=== PATIENT | male | born 1980 | race African-American/Black ===

== ENCOUNTER 2022-11-24 09:26 | Inpatient (IN) | payer OTHER ==
[2022-11-24 10:10] VITALS: BMI 25.3
[2022-11-24] MEDS ORDERED: IBUPROFEN 400 MG TABLET (FP) PO PRN (11:38)
[2022-11-24] MEDS ORDERED: chlordiazePOXIDE HCL 25 MG CAPSULE PO PRN (11:38)
[2022-11-24] MEDS ORDERED: LOPERAMIDE HCL 2 MG CAPSULE PO PRN (11:38)
[2022-11-24] MEDS ORDERED: BENZONATATE 200 MG CAPSULE PO PRN (11:38)
[2022-11-24] MEDS ORDERED: MAG HYDROX/AL HYDROX/SIMETH 30 ML UNIT-DOSE CUP PO PRN (11:38)
[2022-11-24] MEDS ORDERED: DICYCLOMINE HCL 10 MG CAPSULE PO PRN (11:38)
[2022-11-24] MEDS ORDERED: ACETAMINOPHEN 325 MG TABLET (FP) PO PRN (11:38)
[2022-11-24] MEDS ORDERED: ONDANSETRON *ODT* 4 MG TABLET SL PRN (11:38)
[2022-11-24] MEDS ORDERED: NALOXONE HCL 0.4 MG/ML VIAL IM PRN (11:38)
[2022-11-24] MEDS ORDERED: MAGNESIUM HYDROX 2400MG/30ML ORAL SUSPENSION 30 ML CUP PO PRN (11:38)
[2022-11-24] MEDS ORDERED: guaiFENesin 600 MG TABLET.ER (FP) PO PRN (11:38)
[2022-11-24] MEDS ORDERED: hydrOXYzine PAMOATE 25 MG CAPSULE (FP) PO PRN (11:38)
[2022-11-24] MEDS ORDERED: BISMUTH SUBSALICYLATE 524 MG/30 ML PO PRN (11:38)
[2022-11-24] MEDS ORDERED: POLYETHYLENE GLYCOL (HEALTHYLAX) 3350 17 GM PACKET PO PRN (11:38)
[2022-11-24] MEDS ORDERED: NALOXONE HCL (KLOXXADO) 8 MG SPRAY NS PRN (11:38)
[2022-11-24] MEDS ORDERED: BENZOCAINE/MENTHOL (CHLORASEPTIC ) LOZENGE MM PRN (11:38)
[2022-11-24] MEDS ORDERED: ALBUTEROL SO4 HFA INHALER IH PRN (14:50)
[2022-11-24] MEDS: chlordiazePOXIDE HCL 25 MG CAPSULE PO SCH ×2 (17:19→22:22)
[2022-11-24] MEDS ORDERED: MELATONIN 5 MG TABLETS PO SCH (22:00)
[2022-11-24] MEDS: traZODone HCL 50 MG TABLET (FP) PO SCH (22:22)
[2022-11-24] MEDS: THIAMINE HCL 100 MG TABLET (FP) PO SCH (22:22)
[2022-11-25] MEDS: chlordiazePOXIDE HCL 25 MG CAPSULE PO SCH ×4 (06:00→22:12)
[2022-11-25] MEDS: PRENATAL VITAMINS W/ FOLIC ACID TABLET (FP) PO SCH (10:20)
[2022-11-25] MEDS: amLODIPine BESYLATE 5 MG TABLET (FP) PO SCH (10:20)
[2022-11-25] MEDS: HYDROCHLOROTHIAZIDE 12.5 MG CAPSULE (FP) PO SCH (10:20)
[2022-11-25 11:41] LABS: CHLORIDE 111 mmol/L (98-107); POTASSIUM 3.6 mmol/L (3.5-5.1); SODIUM 145 mmol/L (136-145)
[2022-11-25 11:43] LABS: ANION GAP 4 MMOL/L (8-16); BLOOD UREA NITROGEN 18.2 mg/dL (7-18); CALCIUM 8.2 mg/dL (8.5-10.1); CO2 29 mmol/L (21-32); GLUCOSE,RANDOM 86 mg/dL (74-106); HEMATOCRIT 40.2 % (35.4-49); HEMOGLOBIN 13.2 GM/dL (11.7-16.9); MCH 31.2 pg (25.7-33.7); MCHC 32.8 g/dl (32.0-35.9); MEAN CELL VOLUME 95.3 fl (80-96); PLATELET COUNT 246 10^3/uL (134-434); RBC 4.22 M/mm3 (4.00-5.60); RDW 14.2 % (11.9-15.9); WHITE BLOOD COUNT 7.1 K/mm3 (4.0-10.0)
[2022-11-25 11:44] LABS: ALBUMIN 2.8 g/dl (3.4-5.0)
[2022-11-25 11:46] LABS: SGPT/ALT 35 U/L (13-61)
[2022-11-25 11:47] LABS: CREATININE 0.9 mg/dL (0.55-1.3); SGOT/AST 29 U/L (15-37)
[2022-11-25 11:48] LABS: BILIRUBIN,TOTAL 0.5 mg/dL (0.2-1); TOT PROT 5.8 g/dl (6.4-8.2)
[2022-11-25 11:49] LABS: ALK PHOS 44 U/L (45-117)
[2022-11-25] MEDS: FLUoxetine HCL 10 MG CAPSULE PO SCH (12:21)
[2022-11-25] MEDS ORDERED: ALBUTEROL SO4 2.5/IPRATROPIUM 0.5 INH SOL 3 ML VIAL.NEB. NEB ONE (18:53)
[2022-11-25] MEDS ORDERED: predniSONE 20 MG TABLET (UD) PO ONE (19:00)
[2022-11-25] MEDS: THIAMINE HCL 100 MG TABLET (FP) PO SCH (22:11)
[2022-11-25] MEDS: traZODone HCL 50 MG TABLET (FP) PO SCH (22:11)
[2022-11-26] MEDS: chlordiazePOXIDE HCL 25 MG CAPSULE PO SCH ×4 (05:44→22:21)
[2022-11-26] MEDS ORDERED: ALBUTEROL SO4 2.5/IPRATROPIUM 0.5 INH SOL 3 ML VIAL.NEB. NEB SCH (08:00)
[2022-11-26] MEDS: amLODIPine BESYLATE 5 MG TABLET (FP) PO SCH (10:16)
[2022-11-26] MEDS: HYDROCHLOROTHIAZIDE 12.5 MG CAPSULE (FP) PO SCH (10:16)
[2022-11-26] MEDS: PRENATAL VITAMINS W/ FOLIC ACID TABLET (FP) PO SCH (10:17)
[2022-11-26] MEDS: FLUoxetine HCL 10 MG CAPSULE PO SCH (10:20)
[2022-11-26] MEDS ORDERED: ALBUTEROL SO4 2.5/IPRATROPIUM 0.5 INH SOL 3 ML VIAL.NEB. NEB PRN (10:43)
[2022-11-26] MEDS ORDERED: ALBUTEROL SO4 0.083% IH SOL 2.5 MG/3 ML VIAL.NEB. NEB ONE (10:55)
[2022-11-26] MEDS: predniSONE 20 MG TABLET (UD) PO SCH (11:04)
[2022-11-26] MEDS: traZODone HCL 50 MG TABLET (FP) PO SCH (22:21)
[2022-11-26] MEDS: THIAMINE HCL 100 MG TABLET (FP) PO SCH (22:21)
[2022-11-26] MEDS: IBUPROFEN 600 MG TABLET (FP) PO PRN (22:23)
[2022-11-26] MEDS: METHOCARBAMOL 500 MG TABLET PO PRN (22:23)
[2022-11-27] MEDS ORDERED: chlordiazePOXIDE HCL 10 MG CAPSULE PO PRN
[2022-11-27] MEDS: chlordiazePOXIDE HCL 10 MG CAPSULE PO SCH ×2 (06:00→10:14)
[2022-11-27] MEDS: FLUoxetine HCL 10 MG CAPSULE PO SCH (10:14)
[2022-11-27] MEDS: PRENATAL VITAMINS W/ FOLIC ACID TABLET (FP) PO SCH (10:14)
[2022-11-27] MEDS: predniSONE 20 MG TABLET (UD) PO SCH (10:14)
[2022-11-27] MEDS: HYDROCHLOROTHIAZIDE 12.5 MG CAPSULE (FP) PO SCH (10:14)
[2022-11-27] MEDS: amLODIPine BESYLATE 5 MG TABLET (FP) PO SCH (10:14)
[2022-11-27] MEDS: LORazepam 0.5 MG TABLET PO SCH ×2 (13:04→22:07)
[2022-11-27] MEDS: METHOCARBAMOL 500 MG TABLET PO PRN (22:06)
[2022-11-27] MEDS: THIAMINE HCL 100 MG TABLET (FP) PO SCH (22:06)
[2022-11-27] MEDS: traZODone HCL 50 MG TABLET (FP) PO SCH (22:06)
[2022-11-27] MEDS: IBUPROFEN 600 MG TABLET (FP) PO PRN (22:06)
[2022-11-28] MEDS ORDERED: chlordiazePOXIDE HCL 10 MG CAPSULE PO SCH (05:00)
[2022-11-28] MEDS: LORazepam 0.5 MG TABLET PO SCH ×2 (05:59→17:29)
[2022-11-28] MEDS: FLUoxetine HCL 10 MG CAPSULE PO SCH (09:56)
[2022-11-28] MEDS: HYDROCHLOROTHIAZIDE 12.5 MG CAPSULE (FP) PO SCH (09:56)
[2022-11-28] MEDS: predniSONE 20 MG TABLET (UD) PO SCH (09:57)
[2022-11-28] MEDS: amLODIPine BESYLATE 5 MG TABLET (FP) PO SCH (09:57)
[2022-11-28] MEDS: PRENATAL VITAMINS W/ FOLIC ACID TABLET (FP) PO SCH (09:58)
[2022-11-28] MEDS: traZODone HCL 50 MG TABLET (FP) PO SCH (22:07)
[2022-11-28] MEDS: THIAMINE HCL 100 MG TABLET (FP) PO SCH (22:07)
[2022-11-28] MEDS: METHOCARBAMOL 500 MG TABLET PO PRN (22:07)
[2022-11-29] MEDS ORDERED: chlordiazePOXIDE HCL 10 MG CAPSULE PO ONE (05:00)
[2022-11-29] MEDS ORDERED: LORazepam 0.5 MG TABLET PO ONE (05:00)
[2022-11-29 05:59] VITALS: RESP 18
[2022-11-29 09:15] VITALS: BP 155/96; PULSE 60; TEMP 97.6
[2022-11-29] MEDS: amLODIPine BESYLATE 5 MG TABLET (FP) PO SCH (10:47)
[2022-11-29] MEDS: FLUoxetine HCL 10 MG CAPSULE PO SCH (10:47)
[2022-11-29] MEDS: HYDROCHLOROTHIAZIDE 12.5 MG CAPSULE (FP) PO SCH (10:47)
[2022-11-29] MEDS: predniSONE 20 MG TABLET (UD) PO SCH (10:47)
[2022-11-29] MEDS: PRENATAL VITAMINS W/ FOLIC ACID TABLET (FP) PO SCH (10:47)
== END 2022-11-29 09:08 | disposition home or self-care (01) | DRG 773 ==
LOC: YASAS 09:26 → Y6N 12:07
PROVIDERS: ADMIT Allergy & Immunology; ATTEND Surgery
PROC: HZ2ZZZZ Detoxification Services for Substance Abuse Treatment (ICD-10-PCS; principal; 2022-11-24)
DX: F10.230 Alcohol dependence with withdrawal, uncomplicated (principal); F11.20 Opioid dependence, uncomplicated; F12.20 Cannabis dependence, uncomplicated; F17.210 Nicotine dependence, cigarettes, uncomplicated; F10.24 Alcohol dependence with alcohol-induced mood disorder; F32.A Depression, unspecified; I10 Essential (primary) hypertension; J44.9 Chronic obstructive pulmonary disease, unspecified; J45.901 Unspecified asthma with (acute) exacerbation; M25.561 Pain in right knee; M25.562 Pain in left knee; G89.29 Other chronic pain
CPT/HCPCS: 26055; 36415; 71046-TC-FY; 80053; 80307; 85027; 86780; 87635; 87811; 93005; 93010; 94640

== ENCOUNTER 2024-06-23 14:50 | Inpatient (IN) | payer OTHER ==
[2024-06-23 16:34] VITALS: BMI 28.8
[2024-06-23] MEDS ORDERED: guaiFENesin 600 MG TABLET.ER (FP) PO PRN (17:00)
[2024-06-23] MEDS ORDERED: MAGNESIUM HYDROX 2400MG/30ML ORAL SUSPENSION 30 ML CUP PO PRN (17:00)
[2024-06-23] MEDS ORDERED: NICOTINE POLACRILEX 2 MG GUM BUC PRN (17:00)
[2024-06-23] MEDS ORDERED: BENZOCAINE/MENTHOL (CHLORASEPTIC ) LOZENGE MM PRN (17:00)
[2024-06-23] MEDS ORDERED: LOPERAMIDE HCL 2 MG CAPSULE PO PRN (17:00)
[2024-06-23] MEDS ORDERED: POLYETHYLENE GLYCOL (HEALTHYLAX) 3350 17 GM PACKET PO PRN (17:00)
[2024-06-23] MEDS ORDERED: NICOTINE POLACRILEX 2 MG LOZENGE BC PRN (17:00)
[2024-06-23] MEDS ORDERED: ONDANSETRON *ODT* 4 MG TABLET SL PRN (17:00)
[2024-06-23] MEDS ORDERED: DICYCLOMINE HCL 10 MG CAPSULE PO PRN (17:00)
[2024-06-23] MEDS ORDERED: MAG HYDROX/AL HYDROX/SIMETH 30 ML UNIT-DOSE CUP PO PRN (17:00)
[2024-06-23] MEDS ORDERED: BENZONATATE 200 MG CAPSULE PO PRN (17:00)
[2024-06-23] MEDS ORDERED: NALOXONE (NARCAN) HCL 4 MG/0.1 ML SPRAY NS PRN (17:00)
[2024-06-23] MEDS: THIAMINE 100 MG TABLET PO SCH (22:29)
[2024-06-23] MEDS: MELATONIN 5 MG TABLETS PO SCH (22:29)
[2024-06-23] MEDS: ACETAMINOPHEN 325 MG TABLET (FP) PO PRN (22:32)
[2024-06-23] MEDS: METHOCARBAMOL 500 MG TABLET PO PRN (22:32)
[2024-06-23] MEDS: diazePAM 5 MG TABLET PO SCH (22:33)
[2024-06-24 09:27] LABS: HEMATOCRIT 39.9 % (35.4-49); HEMOGLOBIN 13.1 GM/dL (11.7-16.9); MCH 31.6 pg (25.7-33.7); MCHC 32.8 g/dl (32.0-35.9); MEAN CELL VOLUME 96.3 fl (80-96); PLATELET COUNT 303 10^3/uL (134-434); RBC 4.14 M/mm3 (4.00-5.60); RDW 15.3 % (11.9-15.9); WHITE BLOOD COUNT 6.1 K/mm3 (4.0-10.0)
[2024-06-24 09:28] LABS: CHLORIDE 108 mmol/L (98-107); POTASSIUM 4.4 mmol/L (3.5-5.1); SODIUM 140 mmol/L (136-145)
[2024-06-24 09:49] LABS: ALBUMIN 3.2 g/dl (3.4-5.0)
[2024-06-24 09:50] LABS: ANION GAP 4 mmol/L (4-13); BLOOD UREA NITROGEN 18.2 mg/dL (7-18); CALCIUM 8.5 mg/dL (8.5-10.1); CO2 28 mmol/L (21-32); GLUCOSE,RANDOM 114 mg/dL (74-106)
[2024-06-24 09:52] LABS: CREATININE 0.9 mg/dL (0.55-1.3); SGOT/AST 33 U/L (15-37); SGPT/ALT 36 U/L (13-61)
[2024-06-24 09:54] LABS: BILIRUBIN,TOTAL 0.8 mg/dL (0.2-1); TOT PROT 6.4 g/dl (6.4-8.2)
[2024-06-24 09:55] LABS: ALK PHOS 53 U/L (45-117)
[2024-06-24] MEDS: PRENATAL VITAMINS W/ FOLIC ACID TABLET (FP) PO SCH (10:02)
[2024-06-24 13:31] LABS: HIV INTERPRETATION NEGATIVE (NEGATIVE)
[2024-06-24] MEDS: cloNIDine HCL 0.1 MG TABLET PO PRN (17:22)
[2024-06-24] MEDS: traZODone HCL 50 MG TABLET (FP) PO SCH (22:09)
[2024-06-24] MEDS: QUEtiapine FUMARATE 100 MG TABLET (FP) PO SCH (22:09)
[2024-06-25] MEDS: diazePAM 5 MG TABLET PO SCH (06:29)
[2024-06-25] MEDS ORDERED: FLUoxetine HCL 10 MG CAPSULE PO SCH (10:00)
[2024-06-25] MEDS: QUEtiapine FUMARATE 100 MG TABLET (FP) PO SCH (10:09)
[2024-06-25] MEDS: diazePAM 5 MG TABLET PO PRN (10:09)
[2024-06-25] MEDS: HYDROCHLOROTHIAZIDE 25 MG TABLET (FP) PO SCH (15:25)
[2024-06-25] MEDS: amLODIPine BESYLATE 5 MG TABLET (FP) PO SCH (15:25)
[2024-06-26] MEDS: diazePAM 5 MG TABLET PO SCH (06:07)
[2024-06-26 09:03] VITALS: BP 136/98; PULSE 71; RESP 16; TEMP 97.5
[2024-06-27] MEDS ORDERED: diazePAM 5 MG TABLET PO ONE (06:00)
== END 2024-06-26 12:05 | disposition home or self-care (01) | DRG 775 ==
LOC: YASAS 14:50 → Y3N 19:39
PROVIDERS: ADMIT Allergy & Immunology; ATTEND Allergy & Immunology
PROC: HZ2ZZZZ Detoxification Services for Substance Abuse Treatment (ICD-10-PCS; principal; 2024-06-23)
DX: F10.230 Alcohol dependence with withdrawal, uncomplicated (principal); F17.210 Nicotine dependence, cigarettes, uncomplicated; F41.8 Other specified anxiety disorders; G47.00 Insomnia, unspecified; I10 Essential (primary) hypertension; J45.909 Unspecified asthma, uncomplicated; M25.561 Pain in right knee; M25.562 Pain in left knee; Z91.199 Patient's noncompliance with other medical treatment and regimen due to unspecified reason
CPT/HCPCS: 36415; 80053; 80305; 80307; 85027; 86780; 86803; 87389; 93005; 93010

== ENCOUNTER 2024-09-19 15:50 | Inpatient (IN) | payer OTHER ==
[2024-09-19 16:49] VITALS: BMI 29.8
[2024-09-19] MEDS ORDERED: guaiFENesin 600 MG TABLET.ER (FP) PO PRN (21:14)
[2024-09-19] MEDS ORDERED: BENZONATATE 200 MG CAPSULE PO PRN (21:14)
[2024-09-19] MEDS ORDERED: NALOXONE (NARCAN) HCL 4 MG/0.1 ML SPRAY NS PRN (21:14)
[2024-09-19] MEDS ORDERED: MAGNESIUM HYDROX 2400MG/30ML ORAL SUSPENSION 30 ML CUP PO PRN (21:14)
[2024-09-19] MEDS ORDERED: POLYETHYLENE GLYCOL (HEALTHYLAX) 3350 17 GM PACKET PO PRN (21:14)
[2024-09-19] MEDS ORDERED: LOPERAMIDE HCL 2 MG CAPSULE PO PRN (21:14)
[2024-09-19] MEDS ORDERED: MAG HYDROX/AL HYDROX/SIMETH 30 ML UNIT-DOSE CUP PO PRN (21:14)
[2024-09-19] MEDS ORDERED: NICOTINE POLACRILEX 2 MG GUM BUC PRN (21:14)
[2024-09-19] MEDS ORDERED: BENZOCAINE/MENTHOL (CHLORASEPTIC ) LOZENGE MM PRN (21:14)
[2024-09-19] MEDS ORDERED: MELATONIN 5 MG TABLETS ONE (22:36)
[2024-09-19] MEDS ORDERED: cloNIDine HCL 0.1 MG TABLET ONE (22:36)
[2024-09-19] MEDS: cloNIDine HCL 0.1 MG TABLET PO ONE (22:39)
[2024-09-19] MEDS: MELATONIN 5 MG TABLETS PO SCH (22:40)
[2024-09-19] MEDS: THIAMINE 100 MG TABLET PO SCH (22:40)
[2024-09-19] MEDS: hydrOXYzine PAMOATE 25 MG CAPSULE (FP) PO PRN (23:16)
[2024-09-20] MEDS: PRENATAL VITAMINS W/ FOLIC ACID TABLET (FP) PO SCH (09:54)
[2024-09-20] MEDS: NICOTINE 14 MG/24 HOURS TOPICAL PATCH TD SCH (09:54)
[2024-09-20] MEDS: ACETAMINOPHEN 325 MG TABLET (FP) PO PRN (09:55)
[2024-09-20 12:37] LABS: CHLORIDE 105 mmol/L (98-107); POTASSIUM 4.9 mmol/L (3.5-5.1); SODIUM 141 mmol/L (136-145)
[2024-09-20 12:49] LABS: BLOOD UREA NITROGEN 21.8 mg/dL (7-18); SGOT/AST 37 U/L (15-37); SGPT/ALT 36 U/L (13-61)
[2024-09-20 12:50] LABS: ALBUMIN 3.9 g/dl (3.4-5.0); BILIRUBIN,TOTAL 0.6 mg/dL (0.2-1); GLUCOSE,RANDOM 103 mg/dL (74-106)
[2024-09-20 12:51] LABS: ALK PHOS 76 U/L (45-117); TOT PROT 7.5 g/dl (6.4-8.2)
[2024-09-20 12:52] LABS: CALCIUM 9.5 mg/dL (8.5-10.1)
[2024-09-20 12:53] LABS: CREATININE 1.1 mg/dL (0.55-1.3)
[2024-09-20 12:55] LABS: ANION GAP 6 mmol/L (4-13); CO2 30 mmol/L (21-32)
[2024-09-20 13:49] LABS: HEMATOCRIT 47.4 % (40.1-51.0); HEMOGLOBIN 15.2 g/dL (13.7-17.5); MCHC 32.1 g/dl (32.3-36.5); MEAN CELL VOLUME 94.8 fl (79.0-92.2); MEAN PLT VOLUME 10.1 fl (9.4-12.4); PLATELET COUNT 370 x10^3/uL (163-337); RDW 12.7 % (12.1-15.9)
[2024-09-20] MEDS: HYDROCHLOROTHIAZIDE 25 MG TABLET (FP) PO SCH (15:52)
[2024-09-20] MEDS: amLODIPine BESYLATE 5 MG TABLET (FP) PO SCH (15:52)
[2024-09-20] MEDS: amLODIPine BESYLATE 5 MG TABLET (FP) PO ONE (19:33)
[2024-09-20] MEDS: QUEtiapine FUMARATE 100 MG TABLET (FP) PO SCH (22:22)
[2024-09-21] MEDS ORDERED: OXYMETAZOLINE 0.05% NASAL SOLUTION 15 ML BOTTLE NS PRN (13:11)
[2024-09-21] MEDS ORDERED: guaiFENesin 600 MG TABLET.ER (FP) PO PRN (13:11)
[2024-09-21] MEDS ORDERED: BENZONATATE 200 MG CAPSULE PO PRN (13:11)
[2024-09-21] MEDS: BACLOFEN 10 MG TABLET (FP) PO SCH (14:00)
[2024-09-21 14:57] LABS: PH,URINE 6.5 (5.0-8.0); URINE APPEARANCE CLEAR; URINE BILIRUBIN NEGATIVE (NEGATIVE); URINE COLOR YELLOW; URINE GLUCOSE (UA) NEGATIVE (NEGATIVE); URINE KETONE NEGATIVE (NEGATIVE); URINE LEUK ESTERASE NEGATIVE (NEGATIVE); URINE NITRITE NEGATIVE (NEGATIVE); URINE PROTEIN NEGATIVE (NEGATIVE); URINE UROBILINOGEN 0.2 mg/dL (0.2-1.0)
[2024-09-21] MEDS: HYDROCHLOROTHIAZIDE 25 MG TABLET (FP) PO SCH (21:38)
[2024-09-21] MEDS: MAGNESIUM OXIDE 400 MG TABLET (FP) PO SCH (21:39)
[2024-09-22] MEDS: cloNIDine HCL 0.1 MG TABLET PO PRN (06:54)
[2024-09-22] MEDS: amLODIPine BESYLATE 10 MG TABLET (FP) PO SCH (09:29)
[2024-09-23] MEDS: LOSARTAN POTASSIUM 25 MG TABLET PO SCH (15:22)
[2024-09-23] MEDS: BENZOCAINE 20 % GEL TUBE MM PRN (15:22)
[2024-09-23] MEDS: AMOX TR/POT CLAV 500MG/125MG TABLETS (FP) PO SCH (18:03)
[2024-09-26 06:44] VITALS: RESP 17; TEMP 97.5
[2024-09-26 08:47] VITALS: BP 134/95; PULSE 85
== END 2024-09-26 18:14 | disposition left against medical advice (07) | DRG 772 ==
LOC: YASAS 15:50 → Y3NR 22:40 → Y3E 09-20 12:13
PROVIDERS: ADMIT Psychiatry & Neurology Pain Medicine; ATTEND Psychiatry & Neurology Pain Medicine
PROC: HZ42ZZZ Group Counseling for Substance Abuse Treatment, Cognitive-Behavioral (ICD-10-PCS; principal; 2024-09-19)
DX: F10.20 Alcohol dependence, uncomplicated (principal); F12.20 Cannabis dependence, uncomplicated; F17.210 Nicotine dependence, cigarettes, uncomplicated; F39 Unspecified mood [affective] disorder; F41.9 Anxiety disorder, unspecified; F32.A Depression, unspecified; I10 Essential (primary) hypertension; J45.909 Unspecified asthma, uncomplicated; J06.9 Acute upper respiratory infection, unspecified; K02.9 Dental caries, unspecified; M25.561 Pain in right knee; G89.29 Other chronic pain
CPT/HCPCS: 0241U-QW; 36415; 71046-TC-FY; 80053; 80305; 80307; 81003; 85027; 86780; 87811; 93005; 93010; J0475

== ENCOUNTER 2024-12-25 11:55 | Inpatient (IN) | payer OTHER ==
[2024-12-25 12:07] VITALS: BMI 31.8
[2024-12-25] MEDS ORDERED: MAGNESIUM HYDROX 2400MG/30ML ORAL SUSPENSION 30 ML CUP PO PRN (13:09)
[2024-12-25] MEDS ORDERED: ONDANSETRON *ODT* 4 MG TABLET SL PRN (13:09)
[2024-12-25] MEDS ORDERED: BENZONATATE 200 MG CAPSULE PO PRN (13:09)
[2024-12-25] MEDS ORDERED: LOPERAMIDE HCL 2 MG CAPSULE PO PRN (13:09)
[2024-12-25] MEDS ORDERED: BISMUTH SUBSALICYLATE 524 MG/30 ML PO PRN (13:09)
[2024-12-25] MEDS ORDERED: NICOTINE POLACRILEX 4 MG GUM BUC PRN (13:09)
[2024-12-25] MEDS ORDERED: NICOTINE POLACRILEX 2 MG GUM BUC PRN (13:09)
[2024-12-25] MEDS ORDERED: BENZOCAINE/MENTHOL (CHLORASEPTIC ) LOZENGE MM PRN (13:09)
[2024-12-25] MEDS ORDERED: POLYETHYLENE GLYCOL (HEALTHYLAX) 3350 17 GM PACKET PO PRN (13:09)
[2024-12-25] MEDS ORDERED: DICYCLOMINE HCL 10 MG CAPSULE PO PRN (13:09)
[2024-12-25] MEDS ORDERED: NALOXONE (NARCAN) HCL 4 MG/0.1 ML SPRAY NS PRN (13:09)
[2024-12-25] MEDS ORDERED: guaiFENesin 600 MG TABLET.ER (FP) PO PRN (13:09)
[2024-12-25] MEDS ORDERED: ALBUTEROL SO4 HFA INHALER IH PRN (13:11)
[2024-12-25] MEDS: METHOCARBAMOL 500 MG TABLET PO PRN (22:21)
[2024-12-25] MEDS: ACETAMINOPHEN 325 MG TABLET (FP) PO PRN (22:21)
[2024-12-25] MEDS: MELATONIN 5 MG TABLETS PO SCH (22:21)
[2024-12-25] MEDS: THIAMINE 100 MG TABLET PO SCH (22:21)
[2024-12-26 09:37] LABS: MCHC 31.3 g/dl (32.3-36.5); MEAN CELL VOLUME 97.5 fl (79.0-92.2); MEAN PLT VOLUME 10.4 fl (9.4-12.4); RDW 14.7 % (12.1-15.9)
[2024-12-26] MEDS: PRENATAL VITAMINS W/ FOLIC ACID TABLET (FP) PO SCH (10:15)
[2024-12-26 10:56] LABS: GLUCOSE,RANDOM 105 mg/dL (74-106); TOT PROT 6.7 g/dl (6.4-8.2)
[2024-12-26 10:57] LABS: CO2 24 mmol/L (21-32)
[2024-12-26 10:59] LABS: ALK PHOS 49 U/L (40-150)
[2024-12-26 11:01] LABS: SGPT/ALT 19 U/L (0-55)
[2024-12-26 11:02] LABS: CREATININE 1.10 mg/dL (0.55-1.3); SGOT/AST 19 U/L (5-34)
[2024-12-26] MEDS: HYDROCHLOROTHIAZIDE 25 MG TABLET (FP) PO SCH (12:03)
[2024-12-26] MEDS: amLODIPine BESYLATE 5 MG TABLET (FP) PO SCH (12:03)
[2024-12-26] MEDS: MAG HYDROX/AL HYDROX/SIMETH 30 ML UNIT-DOSE CUP PO PRN (16:34)
[2024-12-26] MEDS: QUEtiapine FUMARATE 100 MG TABLET (FP) PO SCH (22:18)
[2024-12-27 06:16] VITALS: PULSE 61; RESP 16
[2024-12-27 08:48] VITALS: BP 134/89; TEMP 97.3
== END 2024-12-27 11:57 | disposition home or self-care (01) | DRG 775 ==
LOC: YASAS 11:55 → Y3N 13:21
PROVIDERS: ADMIT Allergy & Immunology; ATTEND Allergy & Immunology
PROC: HZ2ZZZZ Detoxification Services for Substance Abuse Treatment (ICD-10-PCS; principal; 2024-12-25)
DX: F10.230 Alcohol dependence with withdrawal, uncomplicated (principal); F17.210 Nicotine dependence, cigarettes, uncomplicated; F33.1 Major depressive disorder, recurrent, moderate; F10.282 Alcohol dependence with alcohol-induced sleep disorder; F10.280 Alcohol dependence with alcohol-induced anxiety disorder; F41.8 Other specified anxiety disorders; I10 Essential (primary) hypertension; J44.9 Chronic obstructive pulmonary disease, unspecified; J45.20 Mild intermittent asthma, uncomplicated; M25.561 Pain in right knee; M25.562 Pain in left knee; G89.29 Other chronic pain
CPT/HCPCS: 36415; 80053; 80307; 85027; 86780; 93005; 93010